=== PATIENT | female | born 1975 ===

== ENCOUNTER 2017-12-23 05:15 | Emergency (ER) | payer SELFPAY ==
[2017-12-23 05:46] VITALS: O2SAT 100
[2017-12-23] MEDS ORDERED: Sodium Chloride 0.9% 1,000 ML IV ONE (05:56)
--- NOTE | 2017-12-23 06:04 | C.PDOC ---
History Of Present Illness <NakulMatydebo - Last Filed: 12/23/17 06:41> <Becky Sandy - Last Filed: 12/23/17 07:14> 42 year old female with history of gastritis presents to the ED for evaluation of epigastric abd pain since last night. Patient complains of associated nausea , vomiting. Pt denies diarrhea, and fever, or UTI sx. No other acute complaints at this time. (Roger Mota) History Per: Patient History/Exam Limitations: no limitations Onset/Duration Of Symptoms: Hrs Current Symptoms Are (Timing): Still Present Severity: None Location Of Pain/Discomfort: Epigastric Radiation Of Pain To:: None Associated Symptoms: Fever, Nausea, Vomiting, Diarrhea Recent travel outside of the [place]: No <Roger Mota - Last Filed: 12/23/17 06:41> <Becky Sandy - Last Filed: 12/23/17 07:14> Time Seen by Provider: 12/23/17 05:56 Chief Complaint (Nursing): Abdominal Pain Past Medical History Reviewed: Historical Data, Nursing Documentation, Vital Signs Surgical History: Appendectomy Family History: States: No Known Family Hx - Social History Hx Alcohol Use: Yes Hx Substance Use: No - Immunization History Hx Tetanus Toxoid Vaccination: No Hx Influenza Vaccination: No Hx Pneumococcal Vaccination: No <NakulMatydebo - Last Filed: 12/23/17 06:41> Vital Signs: Last Vital Signs Temp 97.6 F 12/23/17 05:43 Pulse 64 12/23/17 05:43 Resp 20 12/23/17 05:43 BP 118/72 12/23/17 05:43 Pulse Ox 100 12/23/17 06:42 Review Of Systems Constitutional: Positive for: Fever. Negative for: Chills ENT: Negative for: Ear Pain, Throat Pain Cardiovascular: Negative for: Chest Pain Respiratory: Negative for: Cough, Shortness of Breath Gastrointestinal: Positive for: Nausea, Vomiting, Abdominal Pain. Negative for : Diarrhea Genitourinary: Negative for: Dysuria, Hematuria Skin: Negative for: Rash Neurological: Negative for: Headache <Roger Mota - Last Filed: 12/23/17 06:41> Physical Exam - Physical Exam Appears: Non-toxic, No Acute Distress Skin: Normal Color, Warm, Dry Head: Atraumatic, Normacephalic Eye(s): bilateral: Normal Inspection, PERRL, EOMI Oral Mucosa: Moist Neck: Normal, Normal ROM, Supple Chest: Symmetrical Cardiovascular: Rhythm Regular (Rate Regular ) Respiratory: Normal Breath Sounds, No Rales, No Rhonchi, No Wheezing Gastrointestinal/Abdominal: Soft, Tenderness (Epigastric tenderness, no lower abdominal tenderness), No Distention, No Guarding, No Rebound Back: Normal Inspection, No CVA Tenderness Extremity: Normal ROM, No Deformity Neurological/Psych: Oriented x3, Normal Speech Gait: Steady <NakulMatydebo - Last Filed: 12/23/17 06:41> ED Course And Treatment - Laboratory Results Result Diagrams: 12/23/17 06:16 12/23/17 06:16 O2 Sat by Pulse Oximetry: 100 Progress Note: Will order labs, IV fluids, IV pepcid, and IV zofran and re- evaluate. <NakulMatydebo - Last Filed: 12/23/17 06:41> - Laboratory Results Result Diagrams: 12/23/17 06:16 12/23/17 06:16 Pulse Ox Interpretation: Normal Progress Note: Pt reports much improvement of the pain, tolerated PO in ED. Clinical presentation is not compatible with surgical abdomen. Pt advised in dietary control and PMD follwo up . Return precautions d/w pt who understand and agreed Reassessment Condition: Improved <Becky Sandy - Last Filed: 12/23/17 07:14> Disposition <Roger Mota - Last Filed: 12/23/17 06:41> Counseled Patient/Family Regarding: Diagnosis, Need For Followup, Rx Given - Disposition Disposition Time: 07:12 <Becky Sandy - Last Filed: 12/23/17 07:14> - Disposition Referrals: [facility] [Outside] Disposition: HOME/ ROUTINE Condition: STABLE Additional Instructions: Increase PO fluids Liquid- soft diet Take meds as directed' Return to ER if worse Prescriptions: Famotidine [Pepcid] 20 mg PO DAILY #20 tab Ondansetron ODT [Zofran ODT] 1 odt PO BID PRN #6 odt PRN Reason: Nausea/Vomiting Instructions: [place] Diet, Gastritis (DC) Forms: [employer] (Frisian) Print Language: SCOTTISH - Clinical Impression Clinical Impression: Gastroesophageal reflux disease, Abdominal pain - Scribe Statement The provider has reviewed the documentation as recorded by the Scribe (Josiah Case) <Roger Mota - Last Filed: 12/23/17 06:41> <Becky Sandy - Last Filed: 12/23/17 07:14> - Scribe Statement All medical record entries made by the Scribe were at my direction and personally dictated by me. I have reviewed the chart and agree that the record accurately reflects my personal performance of the history, physical exam, medical decision making, and the department course for this patient. I have also personally directed, reviewed, and agree with the discharge instructions and disposition. (Roger Mota)
[2017-12-23] MEDS ORDERED: Sodium Chloride 0.9% 1,000 ML ONE (06:06)
[2017-12-23 06:21] LABS: BASO % 0.3 % (0.0-2.0); EOS % 0.3 % (0.0-4.0); HCG,QUALITATIVE URINE NEGATIVE (NEGATIVE); HEMOGLOBIN 14.6 g/dL (11.0-16.0); LYMPH # 1.4 K/uL (1.0-4.3); LYMPH % 14.7 % (20.0-40.0); MEAN CELL VOLUME 90.9 fL (81.0-99.0); MEAN CORPUSCULAR HGB CONC 34.1 g/dL (33.0-37.0); MEAN PLATELET VOLUME 9.6 fL (7.2-11.7); MONO # 0.4 K/uL (0.0-0.8); MONO % 3.8 % (0.0-10.0); NEUT % 80.9 % (50.0-75.0); NRBC % 0.1 % (0.0-2.0); RBC 4.69 Mil/uL (3.80-5.20); RED CELL DISTRIBUTION WIDTH 13.3 % (11.5-14.5); WHITE BLOOD COUNT 9.8 K/uL (4.8-10.8)
[2017-12-23 06:24] LABS: SQUAMOUS EPITHIAL 3 /hpf (0-5); URINE BACTERIA RARE (<OCC); URINE BILIRUBIN NEGATIVE (NEGATIVE); URINE BLOOD 2+ (NEGATIVE); URINE CLARITY Hazy (Clear); URINE COLOR Yellow (YELLOW); URINE GLUCOSE (UA) NORMAL (Normal); URINE LEUKOCYTE ESTERASE NEGATIVE Leu/uL (Negative); URINE NITRATE NEGATIVE (NEGATIVE); URINE PROTEIN NEGATIVE (NEGATIVE); URINE UROBILINOGEN NORMAL mg/dL (0.2-1.0)
[2017-12-23 06:33] LABS: CALCIUM 9.2 mg/dl (8.6-10.4); GFR AFRICAN-AMERICAN > 60; GFR NON-AFRICAN AMERICAN > 60; LIPASE 143 U/L (23-300)
[2017-12-23 06:39] LABS: ALB/GLOB RATIO 1.1 (1.0-2.1); ALBUMIN 4.4 g/dL (3.5-5.0); ALT/SGPT 26 U/L (9-52); AST/SGOT 31 U/L (14-36); BLOOD UREA NITROGEN 14 mg/dL (7-17)
[2017-12-23 07:25] VITALS: BP 116/70; PULSE 68; RESP 18; TEMP 98.1
== END 2017-12-23 07:34 | disposition home or self-care (01) ==
LOC: C.ER 05:15
DX: K21.9 Gastro-esophageal reflux disease without esophagitis (principal)
CPT/HCPCS: 80053; 81001; 83690; 84703; 85025; 96361; 96374; 96375; 99285; J2405; J7040